=== PATIENT | female | born 1990 | race Asian ===

== ENCOUNTER 2018-01-12 14:21 | Inpatient (IN) | payer SELFPAY ==
[~2018-01-12] VITALS: Ht 162 cm; Wt 68.0 kg
[2018-01-16] MEDS ORDERED: CARBOPROST 250 MCG/ML AMP IM PRN (00:50)
[2018-01-16] MEDS ORDERED: OXYTOCIN 20 UNITS in LACTATED RINGERS 1,000 ML IV SCH (00:50)
[2018-01-16] MEDS ORDERED: METHYLERGONOVINE 0.2 MG/ML AMP IM PRN ×2 (00:50→20:25)
[2018-01-16] MEDS ORDERED: PROMETHAZINE 25 MG/ML VIAL IVP PRN (00:50)
[2018-01-16] MEDS ORDERED: LACTATED RINGERS 1,000 ML IV SCH (00:50)
[2018-01-16] MEDS ORDERED: NALBUPHINE 10 MG/ML AMP IVP PRN (00:50)
[2018-01-16] MEDS ORDERED: MISOPROSTOL 25 MCG TAB VG PRN (00:50)
[2018-01-16 01:17] VITALS: BP 102/67
[2018-01-16 01:31] LABS: BASOPHILS % (AUTO) 0.8 % (0.0-2.0); EOSINOPHILS # (AUTO) 0.1 K/uL (0-0.4); HEMATOCRIT 31.9 % (36-48); HEMOGLOBIN 10.1 g/dL (12.0-16.0); LYMPHOCYTES # (AUTO) 1.8 K/uL (2.5-16.5); LYMPHOCYTES % (AUTO) 31.3 % (20.5-51.1); MEAN CORPUSCULAR HEMOGLOBIN 27 pg (27-31); MEAN CORPUSCULAR HGB CONC 32 g/dL (33-37); MEAN CORPUSCULAR VOLUME 85.4 fL (80-94); MONOCYTES # (AUTO) 0.6 K/uL (0.8-1.0); NEUTROPHILS # (AUTO) 3.1 K/uL (1.8-7.7); NEUTROPHILS % (AUTO) 54.9 % (42.2-75.2); PLATELET COUNT (AUTO) 193 K/uL (140-450); RED BLOOD CELL COUNT(AUTO) 3.73 MIL/uL (4.20-5.40); RED CELL DISTRIBUTION WIDTH 16.7 % (11.6-13.7); WHITE BLOOD COUNT (AUTO) 5.6 K/uL (4.8-10.8)
[2018-01-16 01:47] LABS: ANION GAP 14.6 (8-16); CARBON DIOXIDE 22.1 mmol/L (21-32); CREATININE 0.6 mg/dL (0.6-1.3); POTASSIUM 3.7 mmol/L (3.5-5.1)
[2018-01-16 01:53] LABS: ALBUMIN 2.8 g/dL (3.4-5.0); TOTAL BILIRUBIN 0.3 mg/dL (0.0-1.0)
[2018-01-16] MEDS ORDERED: OXYTOCIN 20 UNITS/LR PREMIX 1,000 ML IV ONE (02:23)
[2018-01-16 04:40] LABS: APPEARANCE,URINE CLEAR (CLEAR); BILIRUBIN,URINE NEGATIVE (NEGATIVE); BLOOD, URINE NEGATIVE (NEGATIVE); COLOR,URINE YELLOW (YELLOW); LEUKOCYTE ESTERASE ,URINE NEGATIVE (NEGATIVE); NITRITE, URINE NEGATIVE (NEGATIVE); UGLUCOSE NEGATIVE (NEGATIVE)
[2018-01-16] MEDS ORDERED: NALBUPHINE 10 MG/ML AMP ONE (08:37)
[2018-01-16] MEDS ORDERED: ROPIVACAINE 0.2%/NS PREMIX 250 ML EPI ONE (10:03)
--- NOTE | 2018-01-16 10:16 | NUR ---
PATIENT HAS BEEN SCREENED AND CATEGORIZED LOW NUTRITION RISK. PATIENT WILL BE SEEN WITHIN 7 DAYS OF ADMISSION. 01/22/[address]
[2018-01-16 10:38] LABS: RAPID PLASMA REAGIN NON-REACTIVE (Non Reactiv)
[2018-01-16] MEDS ORDERED: OXYTOCIN 10 UNITS/ML VIAL ONE (11:26)
[2018-01-16] MEDS ORDERED: MEASLES, MUMPS, AND RUBELLA 1 VIAL SQVAC PRN (20:25)
[2018-01-16] MEDS ORDERED: TEMAZEPAM 15 MG CAP PO PRN (20:25)
[2018-01-16] MEDS ORDERED: oxyCODONE/APAP 5/325 MG 1 TAB TAB PO PRN (20:25)
[2018-01-16] MEDS ORDERED: OXYTOCIN 10 UNITS/ML VIAL IM PRN (20:25)
[2018-01-16] MEDS ORDERED: METHYLERGONOVINE 0.2 MG TAB PO PRN (20:25)
[2018-01-16] MEDS ORDERED: HYDROcodone/APAP 5/325 MG 1 TAB TAB PO PRN (20:25)
[2018-01-16] MEDS ORDERED: BENZOCAINE/MENTHOL 20%-0.5% 60 GM CAN TP PRN (20:25)
[2018-01-16] MEDS ORDERED: DOCUSATE SOD/SENNA 50/8.6 MG 1 TAB PO SCH (21:00)
[2018-01-17] MEDS: IBUPROFEN 800 MG TAB PO PRN ×3 (02:29→21:07)
[2018-01-17 06:10] LABS: HEMOGLOBIN 9.5 g/dL (12.0-16.0)
[2018-01-17] MEDS ORDERED: DOCUSATE SOD/SENNA 50/8.6 MG 1 TAB PO SCH (21:00)
== END 2018-01-18 16:25 | disposition home or self-care (01) | DRG 775 ==
LOC: MLD 01-16 00:05 → MFCC 01-16 20:23
PROVIDERS: ADMIT Obstetrics & Gynecology; ATTEND Obstetrics & Gynecology
PROC: 10E0XZZ Delivery of Products of Conception, External Approach (ICD-10-PCS; principal; 2018-01-16)
PROC: 0KQM0ZZ Repair Perineum Muscle, Open Approach (ICD-10-PCS; 2018-01-16)
PROC: 3E0R3BZ Introduction of Anesthetic Agent into Spinal Canal, Percutaneous Approach (ICD-10-PCS; 2018-01-16)
PROC: 00HU33Z Insertion of Infusion Device into Spinal Canal, Percutaneous Approach (ICD-10-PCS; 2018-01-16)
PROC: 10907ZC Drainage of Amniotic Fluid, Therapeutic from Products of Conception, Via Natural or Artificial Opening (ICD-10-PCS; 2018-01-16)
PROC: 3E0234Z Introduction of Serum, Toxoid and Vaccine into Muscle, Percutaneous Approach (ICD-10-PCS; 2018-01-16)
DX: O71.4 Obstetric high vaginal laceration alone (principal); Z37.0 Single live birth; Z3A.39 39 weeks gestation of pregnancy; Z23 Encounter for immunization
CPT/HCPCS: 36415; 59409; 80053; 81003; 85018; 85025; 86592; 86886; 86900; 86901; 90715; J2300; J2590; J2795; J7120